=== PATIENT | female | born 1995 | race Caucasian/White ===

== ENCOUNTER → 2017-07-04 19:41 | Outpatient (CLI) | payer BC, SELFPAY | PROVIDERS: Family Provider Family Medicine; PCP Family Medicine; Visit Provider Physician Assistant Surgical | DX: J02.9 Acute pharyngitis, unspecified (principal) | CPT/HCPCS: 87081 ==

== ENCOUNTER 2020-02-21 11:16 | Day surgery (SDC) | payer BC, SELFPAY ==
[2020-02-19 11:04] VITALS: BMI 21.2
[2020-02-21] VITALS (7 sets, daily range): BP systolic 109–134; BP diastolic 72–90; PULSE 78–103; RESP 14–20; TEMP 36.6–37.3; O2SAT 94–99; BMI 27.3
--- NOTE | 2020-02-21 07:54 | HP_ITS ---
Intake Vital Signs 02/19/20 Height 5 ft 7 in 02/19/20 Weight: 170 lb 02/19/20 BMI 26.6 Intake Visit Reasons: RIGHT SHOULDER Accompanied by: Self Is patient in pain?: Yes Pain scale (1-10): 7 Allergies No Known Allergies Allergy (Unverified 07/04/17 12:07) Medications docusate sodium 100 mg capsule 100 mg PO DAILY 02/19/20 [History Confirmed 02/19/20] hydrocodone 5 mg-acetaminophen 325 mg tablet tab PO 02/19/20 [History Confirmed 02/19/20] ibuprofen 200 mg capsule 200 mg PO Q6H PRN 02/19/20 [History Confirmed 02/19/20] Is last menstrual period known: Yes Post menopausal: No PFSH Family History (Updated 02/19/20 @ 11:22 by Margareth Zepeda) Grandmother Diabetes Grandfather CVA (cerebral vascular accident) Social History (Updated 02/19/20 @ 11:[address] Salty Greenberg DO) Smoking Status: Never smoker alcohol intake: current alcohol intake frequency: holidays/special occasions only HPI RIGHT SHOULDER: Details: Parts of this documentation were recorded by a scribe, this documentation accurately reflects the service provided and the decisions made by me, Dr. Salty Greenberg DO 02/19/20 1058. EUGENIO RODRIGUEZ is a 24 year old F here today to establish as a new patient. [facility] last weekend on 02/16/2020, in a tree house. Was descending the stairs, missed a step and landed on her right shoulder. Patient does not recall hearing anything. Patient recalls the shoulder not feeling right. Patient went to [facility] same day. The hospital obtained x-rays and placed patient into a sling. Patient was prescribed hydrocodone-acetaminophen 5/325mg take 1 tablet p.o. q6hrs prn pain. Along with ibuprofen and applying ice packs. Denies previous injuries and surgeries to her right shoulder. Denies previous injections into her right shoulder. Pain is located deltoid. ROS Const Reports system reviewed and no additional complaints, except as docu, Denies chills, Reports difficulty sleeping, Denies fatigue, Denies fever(s) Card Reports system reviewed and no additional complaints, except as docu, Denies chest pain, Denies shortness of breath Resp Reports system reviewed and no additional complaints, except as docu, Denies chest congestion, Denies cough, Denies shortness of breath GI Reports system reviewed and no additional complaints, except as docu, Denies abdominal pain, Denies constipation, Denies incontinent of stools, Denies loose stools Reports system reviewed and no additional complaints, except as docu, Denies urinary incontinence Musc Reports system reviewed and no additional complaints, except as docu, Reports joint pain, Reports joint swelling, Denies numbness, Reports stiffness, Denies tingling Skin/Breast Reports system reviewed and no additional complaints, except as docu, Denies dry skin, Denies redness, Denies lesions, Denies new lesions, Denies non-healing lesions, Denies itching, Denies rash, Denies skin ulcer, Denies sores, Reports unusual bruising, Denies wounds Neuro Yes system reviewed and no additional complaints, except as docu, No numbness, No radiating pain, No tingling Endo Denies fatigue Ortho Exam Right Shoulder Date of injury: 02/16/20 Skin/Wound: Yes ecchymosis, No erythema, Yes swelling SHOULDER: Compartments soft arm forearm she is able to wiggle all of her fingers wrist extension intact sensation over the axillary nerve no open lesions there is some ecchymosis over the anterior armPalpable radial pulse intact sensation light touch Supplemental Info X-rays on does 02/16/2020: demonstrated a displaced comminuted surgical neck fracture Assessment & Plan Problems 1. Closed 2-part displaced fracture of surgical neck of right humerus, initial encounter S42.221A Plan Personally reviewed x-rays obtained at [facility]. Educated to patient her humerus is displaced and broken. Surgery: with plate and screw, will not need immobilized. Physical therapy to be ordered after surgery. Advised the surgery would be an open reduction, internal fixation. Reviewed the pre-operative plans with the patient. Risks and benefits of the procedure were fully explained, including but not limited to infection, neurovascular injury, continued pain, arthritis, stiffness, need for further surgery, re-injury, DVT, PE, general risks of anesthesia, and loss of limb or life. The patient understands all the risks and does wish to proceed with written consent. Advised to d/c her ibuprofen. All questions answered. Patient in agreement of plan. Coding Level of Care Code Off vis,new,level 3 Diagnoses Closed 2-part displaced fracture of surgical neck of right humerus, initial encounter S42.221A ??Encounter type: initial encounter ??Fracture type: closed ??Fracture morphology: 2-part ??Fracture alignment: displaced
[2020-02-21 11:47] LABS: Internal QC Validated? YES +Cl - CLEAR BKGD; Pregnancy, Urine Negative Negative
[2020-02-21] MEDS: Lactated Ringers 1,000 ML 100 ML IV (12:31)
[2020-02-21] MEDS: Cefazolin 2 GM in 0.9% Normal Saline 100 ML IV (13:01)
--- NOTE | 2020-02-21 13:05 | RAD_ITS ---
STUDY: X-RAY - RIGHT HUMERUS REASON FOR EXAM: Female, 24 years old. ORIF PROXIMAL HUMERUS FX TECHNIQUE: Intraoperative fluoroscopy COMPARISON: None. FINDINGS: Intraoperative fluoroscopy shows placement of lateral plate and excision screws into a comminuted proximal humeral fracture with full anatomic alignment at the end of the procedure. RAD/Humerus min 2 Views IMPRESSION: Open reduction internal fixation of proximal humerus fracture with lateral plating. Electronically Signed: Petra Powell, at 15:35 EDT Tel , Service support ,
--- NOTE | 2020-02-21 15:21 | DCINST_ITS ---
Discharge Diet: No Restrictions Weight Bearing Status: No weight bearing Keep extremity elevated above heart level: Operative Extremity Call your doctor if you observe: Shortness of breath, Chest pain Additional Instructions: Strict ice and elevation next 72 hours. Leave dressing on for 72 hours then may remove prior to first shower. May allow antibacterial soap and warm water over incisions. Okay to leave Steri-Strips on and get them wet, they will fall off on their own. do not submerge incision in tub pool or otherwise for 3 weeks. Encourage immediate shoulder elbow wrist and finger range of motion. No lifting besides weight of arm right upper extremity. No pushing pulling or carrying.. Encourage climbing the wall with her hand and lying on your bed and bringing your arm over your head when able. Call with any questions or concerns. Follow-up in 2 weeks. Allergies/Adverse Reactions: Allergies No Known Allergies Allergy (Verified 02/20/20 11:48) Medications to take at Discharge docusate sodium 100 mg capsule 100 mg PO DAILY 02/19/20 hydrocodone 5 mg-acetaminophen 325 mg tablet 1 tab PO PRN PRN 02/19/20 ibuprofen 200 mg capsule 200 mg PO Q6H PRN 02/19/20 Cephalexin [Keflex] 1,000 mg PO Q8 #4 cap 02/21/20 Ondansetron HCl [Zofran] 4 mg PO Q6H PRN PRN 5 Days #20 tab 02/21/20 Oxycodone [Oxyir] 5 mg PO Q4H PRN PRN #40 tablet 02/21/20 The following prescriptions were given: Cephalexin [Keflex] 1,000 mg PO Q8 #4 cap Transmission Status: Pending to [facility] Oxycodone [Oxyir] 5 mg PO Q4H PRN PRN #40 tablet PRN Reason: Pain Score 6-10 Transmission Status: Sent to [facility] Ondansetron HCl [Zofran] 4 mg PO Q6H PRN PRN 5 Days #20 tab PRN Reason: Nausea Transmission Status: Pending to [facility] Primary Care Physician: Сергей Jeffers MD [Primary Care Provider] - Test Results: Test results from this visit will be discussed in further detail at your follow- up appointment, if applicable. Please Follow Up With: Salty Greenberg DO - 2 weeks
--- NOTE | 2020-02-21 15:24 | PCM.OPRPT ---
Report of Operation Date of Procedure: 02/21/20 Description of Surgical Findings:: Preoperative diagnosis: Right displaced surgical neck fracture Postoperative diagnosis: Same Procedure: Minimally invasive trans-deltoid open reduction internal fixation right proximal humerus Implants: Synthes proximal humerus plate Anesthesia: General with interscalene block EBL: 25 cc Complications: None Condition: Stable to PACU Indication for procedure: 24-year-old female patient who sustained injury to her right upper extremity falling out of a tree house on her bacheloree celebration she immediately had pain and x-rays demonstrated a displaced proximal humerus fracture of the surgical neck we did discuss operative versus nonoperative intervention risk benefits and alternatives were reviewed including risk of bleeding infection nerve, artery, bone, tissue damage, blood clot need for further surgery and continued pain, stiffness. Procedure: Patient was met in the preoperative holding area once again the operative extremity was identified by both patient and physician was marked. patient met anesthesia brought back to the operating room will car transfer the operative table in supine position. anesthesia was started. The patient was then positioned in a beachchair configuration . we brought in fluoroscopy to ensure that AP and axillary projections could be obtained through the table. patient was then patient draped in the usual sterile fashion and a timeout was called into the proper patient procedure and extremity are being contemplated. A 10 blade scalpel was used to make a 4 cm incision over the anterior lateral shoulder in line with the anterior corner of the acromion this was carried down through the skin and subcutaneous tissue electrocautery was used to maintain meticulous hemostasis a measuring device was used to ensure that the deltoid split did not extend beyond 5 cm from the tip of the lateral acromion to avoid injury to the axillary nerve. A Mcmullen was used to free the deltoid from the underlying tissues plane was developed below the deltoid and a proximal humerus plate attached to the radiolucent arm was placed beneath the deltoid the shoulder was then reduced with external rotation slight flexion and traction. We temporarily fixed the plate to the proximal head with a K wire and proceeded to place a K wire in the distal plate through the guide once were satisfied with the plate position and the fracture reduction we then placed a cortical screw in the shaft followed by locking screw distally followed by sequential locking screws in the proximal humerus with attention to make sure that the proximal extent of the plate was below the superior extent of the humerus there be no impingement in the subacromial space. Once all this screws were placed and checked under fluoroscopy and saved to the PACS system the wound was thoroughly irrigated with irrigation and Aricept rinse and the deltoid was closed with 0 Vicryl running suture followed by 2-0 Vicryl subcutaneous tissues followed by running 3-0 Monocryl stitch. Present was applied to form of Mepilex and a simple sling. Patient was brought back to the PACU in stable condition all counts were correct
[2020-02-21] MEDS: Cefazolin 1 GM/50 ML BAG IV (16:08)
== END 2020-02-21 17:05 | disposition home or self-care (01) ==
LOC: SDC 11:19 → AC 11:29
PROVIDERS: Anesthesiology; PCP Family Medicine; Referring Provider Orthopaedic Surgery; Visit Provider Orthopaedic Surgery
PROC: (CPT 23680; principal; 2020-02-21 11:40)
DX: S42.221A 2-part displaced fracture of surgical neck of right humerus, initial encounter for closed fracture (principal); W10.8XXA Fall (on) (from) other stairs and steps, initial encounter; Y93.01 Activity, walking, marching and hiking; Y92.89 Other specified places as the place of occurrence of the external cause; Y99.8 Other external cause status
CPT/HCPCS: 23680; 73060; 76000; 81025; C1713; J7120; J2405

== ENCOUNTER 2020-05-11 17:30 | Outpatient (RCR) | payer BC, SELFPAY ==
[2020-03-06 08:50] VITALS: BMI 21.2
--- NOTE | 2020-04-08 13:42 | HP.PTEVAL_ITS ---
Patient's Visit Information EUGENIO RODRIGUEZ is a 25 year old F referred to Physical Therapy by Dr. Salty Greenberg DO with a diagnosis of R shoulder ORIF 02/21/20. Date of Evaluation: 04/08/20 Physical Therapist: Mir Reyes PT, ATC - Visit Plan Frequency: 2-3x /Week Duration: 4-6 Weeks Plan: R shoulder PROM/mobs, stretching and strengthening, scap stab ex's, UBE, and HEP - Subjective DOS: 02/21/20. Pt reports she fractured her R shoulder from a fall at that time. Pt reports she is doing much better at this time. Pt notes she had to have ORIF performed on her R proximal humerus secondary to the fracture. Pt is R hand dominant. Pt reports her R shoulder only hurts when she attempts to reach overhead or adduct her arm while in flexion. Pt reports no tingling or nombness in R UE. No sleep defficulty at this time secondary to pain. Pt works for a [employer] firm in [employer]. 0/10 pain at rest, 3/10 at worst (when reaching overhead). Pt reports she is still limited from carrying heavy objects like bags of groceries secondary to pain. - Pain R shoulder Pain Intensity (Out of 10): 0 Pain Intensity Range: 3 - Objective Neuro: B UE sensation is WNL to light touch. B bicepital reflex= 1/3. Palpation/observation: Incision is healed. No crepitus with AROM. ROM: L shoulder flex= 180, abd= 180, ER= 90, IR WNL; R shoulder flex= 130, abd= 120, ER= 50, IR Moderately limited. MMT: L shoulder flex= 16, abd= 17.9, ER= 10.5, IR= 18; R shoulder flex= 6.4, abd= 6.3, ER= 10.5, IR= 14.7 (all measured in #/F) - Goals Goal 1:: Decrease R shoulder pain x 50% to aid with IADL's Goal Time Frame: 4-6 Weeks Goal 2:: Increase R shoulder flex and abduction ROM x 20 degrees to aid with overhead activity Goal Time Frame: 4-6 Weeks Goal 3:: Increase R shoulder strength x 5-10 pounds to aid with IADL's Goal Time Frame: 4-6 Weeks Goal 4:: I with HEP Goal Time Frame: 4-6 Weeks - Rehabilitation Potential Physical Therapy Diagnosis: Pt ;has R shoulder pain, weakness, and limited ROM secondary to R shoulder ORIF Rehabilitation Potential: Good - Anticipated Interventions Patient/Client Instruction: Educate patient on: Condition, Plan of Care For the Purpose of:: To improve self management Therapeutic Exercise to Include: Strength training, Endurance training, Flexibilty training, Passive ROM, Active ROM, Scapular Strength/Stabilization For the Purpose of:: To decrease pain, To increase ROM, To improve muscle performance and motor function Cryotherapy (ice pack, ice massage): Yes For the Purpose of:: To decrease pain Thank you for the opportunity to evaluate your patient. For Medicare and Medicare HMO plans, please review the plan of care and approve it. It will need to be FAXED BACK to us at [phone] for Medicare purposes. For Medicare only, by signing this I certify the plan of care. Please let me know if there are questions or concerns regarding this plan of care. Physician Signature: Date:
--- NOTE | 2020-06-22 15:10 | HP.PTDCSUM ---
It has been my pleasure to treat EUGENIO RAZA referred by Dr. Salty Greenberg DO, with the diagnosis of R shoulder ORIF 02/21/20 for a total of 9 visit(s). Discharge Date: Please see the following information for a summary of their discharge status. Subjective: No pain this date. I am ready to continue on my own R shoulder Pain Intensity (Out of 10): 0 % Improvement: 80 Objective/Function: R shoulder ROM: flex= 160, abd= 145, ER= 65, IR WNL. MMT: R shoulder flex= 4+/5. All other B UE MMT 5/5 throughout. Pain is 0/10, increases to 2/10 at worst. Pt is I with HEP. Rx goals achieved Goal 1:: Decrease R shoulder pain x 50% to aid with IADL's Goal Progress: Goal Met Goal 2:: Increase R shoulder flex and abduction ROM x 20 degrees to aid with overhead activity Goal Progress: Goal Met Goal 3:: Increase R shoulder strength x 5-10 pounds to aid with IADL's Goal Progress: Goal Met Goal 4:: I with HEP Goal Progress: Goal Met Plan: Discharge If there are questions or concerns regarding this patient's physical therapy, please feel free to call me at [phone]. Thank you for the referral of this patient. Sincerely, Mir Reyes, PT, ATC
== END 2020-05-11 19:00 | disposition home or self-care (01) ==
LOC: PT 17:30
PROVIDERS: PCP Family Medicine; Referring Provider Orthopaedic Surgery; Visit Provider Orthopaedic Surgery
DX: Z47.89 Encounter for other orthopedic aftercare (principal)
CPT/HCPCS: 97110; 97161; 97164

== ENCOUNTER → 2020-06-08 15:19 | Outpatient (CLI) | payer BC, SELFPAY ==
[2020-06-08 14:36] VITALS: BMI 29.7
[2020-06-08 15:37] LABS: Absolute Lymphocyte Count 2.87 X10^3/uL (0.83-4.51); Basophil# 0.05 X10^3/uL; Basophil% 0.5 % (0-1); Eosinophil# 0.15 X10^3/uL; Eosinophils% 1.5 % (0-5); Hematocrit 39.9 % (37-47); Hemoglobin 13.8 g/dL (12.0-15.0); Lymphocyte # 2.87 X10^3/ul (4.0); Lymphocyte % 28.7 % (19-41); Mean Corp Hgb Conc 34.6 g/dL (32-36); Mean Corpuscular Hgb 30.7 pg (27.0-32.0); Mean Corpuscular Volume 88.9 fL (81-99); Mean Platelet Vol. 9.6 fl (6.2-12.0); Monocyte# 0.92 X10^3/uL; Monocyte% 9.2 % (0-10); NRBC Flagged by Analyzer 0 % (0-5); Neutrophil # 5.97 X10^3/uL (2.7-7.7); Neutrophil % 59.8 % (47-70); Platelet Count 295 K/mm3 (150-450); RBC Distribution Width CV 12.4 % (11.6-14.6); RBC Distribution Width SD 40.2 fl (35.1-43.9); Red Blood Count 4.49 M/mm3 (4.2-5.4)
[2020-06-08 17:43] LABS: Amphetamine Urine VISTA NEGATIVE (<1000 ng/mL); Barbiturate Urine VISTA NEGATIVE (< 200 ng/mL); Benzodiazepine Urine VISTA NEGATIVE (< 200 ng/mL); Cocaine Urine VISTA NEGATIVE (< 300 ng/mL); Ecstacy Urine VISTA NEGATIVE (< 500 ng/mL); Methadone Urine VISTA NEGATIVE (< 300 ng/mL); PCP Urine VISTA NEGATIVE (< 25 ng/mL); THC Urine VISTA POSITIVE (< 50 ng/mL); Vista UDS pH Range 6
[2020-06-09 09:08] LABS: HIV - WCH Non-Reactive (Nonreactive); Hepatitis B Surface Antigen Non-Reactive (Nonreactive); Hepatitis C Antibody Non-Reactive (Nonreactive); Rubella IgG Reactive (Nonreactive)
[2020-06-11 01:40] LABS: Rapid Plasmin Reagin (RPR) NONREACTIVE (NONREACTIVE)
== END ==
PROVIDERS: PCP Family Medicine; Referring Provider Obstetrics & Gynecology; Visit Provider Obstetrics & Gynecology
DX: Z34.00 Encounter for supervision of normal first pregnancy, unspecified trimester (principal)
CPT/HCPCS: 36415; 80307; 85025; 86592; 86703; 86762; 86803; 86850; 86900; 86901; 87086; 87088; 87340

== ENCOUNTER → 2020-07-10 16:19 | Outpatient (CLI) | payer BC, SELFPAY ==
[2020-07-10 15:29] VITALS: BMI 29.8
[2020-07-14 03:07] LABS: Chlamydia By Nucleic Acid AMP Negative (Negative)
[2020-07-14 10:16] LABS: Gonococcus By Nucleic Acid AMP Negative (Negative)
== END ==
PROVIDERS: PCP Family Medicine; Visit Provider Obstetrics & Gynecology
DX: Z34.00 Encounter for supervision of normal first pregnancy, unspecified trimester (principal)
CPT/HCPCS: 87491; 87591

== ENCOUNTER → 2020-09-07 08:13 | Outpatient (CLI) | payer BC, SELFPAY ==
[2020-09-03 08:41] VITALS: BMI 31.8
[2020-09-07 09:20] LABS: NATERA MAILED SPECIMEN
== END ==
PROVIDERS: Referring Provider Obstetrics & Gynecology; Visit Provider Obstetrics & Gynecology
DX: Z34.82 Encounter for supervision of other normal pregnancy, second trimester (principal); Z31.430 Encounter of female for testing for genetic disease carrier status for procreative management
CPT/HCPCS: 36415

== ENCOUNTER → 2020-10-30 14:23 | Outpatient (CLI) | payer BC, SELFPAY ==
[2020-10-02 15:59] VITALS: BMI 32.3
[2020-10-30 14:40] LABS: Absolute Lymphocyte Count 2.46 X10^3/uL (0.83-4.51); Absolute Neutrophil Count 11.1 X10^3/uL (2.0-7.7); Basophil# 0.06 X10^3/uL; Basophil% 0.4 % (0-1); Eosinophil# 0.19 X10^3/uL; Eosinophils% 1.2 % (0-5); Hematocrit 36.8 % (37-47); Hemoglobin 12.5 g/dL (12.0-15.0); Lymphocyte # 2.46 X10^3/ul (0.83-4.51); Lymphocyte % 16.2 % (19-41); Mean Corpuscular Hgb 30.8 pg (27.0-32.0); Mean Corpuscular Volume 90.6 fL (81-99); Mean Platelet Vol. 10.1 fl (6.2-12.0); Monocyte# 1.11 X10^3/uL; Monocyte% 7.3 % (0-10); NRBC Flagged by Analyzer 0 % (0-5); Neutrophil # 11.11 X10^3/uL (2.7-7.7); Neutrophil % 72.9 % (47-70); Platelet Count 233 K/mm3 (150-450); RBC Distribution Width CV 13.6 % (11.6-14.6); RBC Distribution Width SD 45.3 fl (35.1-43.9); Red Blood Count 4.06 M/mm3 (4.2-5.4); White Blood Count 15.2 K/mm3 (4.4-11.0)
[2020-10-30 14:49] LABS: Glucose Challenge Gest 1H 50g 90 mg/dL (70-140)
[2020-11-01 08:52] LABS: CMV Acute Antibody IgM < 30.0 AU/mL (0.0-29.9); CMV Antibody IgG < 0.60 U/mL (0.00-0.59)
== END ==
PROVIDERS: Visit Provider Obstetrics & Gynecology
DX: O35.8XX0 Maternal care for other (suspected) fetal abnormality and damage, not applicable or unspecified (principal); Z3A.00 Weeks of gestation of pregnancy not specified
CPT/HCPCS: 36415; 82950; 85025; 86644; 86645